=== PATIENT | male | born 1930 | race Caucasian/White ===

== ENCOUNTER 2018-04-29 12:19 | Emergency (ER) | payer OTHER, BC ==
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
== END 2018-04-29 13:12 | disposition home or self-care (01) ==
LOC: ER 12:19
DX: Z48.02 Encounter for removal of sutures (principal); E03.9 Hypothyroidism, unspecified; E78.5 Hyperlipidemia, unspecified; Z79.899 Other long term (current) drug therapy
CPT/HCPCS: 99281